=== PATIENT | male | born 1980 | race Caucasian/White ===

== ENCOUNTER 2018-12-28 01:30 | Emergency (ER) | payer OTHER ==
[~2018-12-28] VITALS: Ht 162.6 cm; Wt 93.0 kg
--- NOTE | 2018-12-28 01:38 | ED.ADGEN ---
Past History Past Medical History: GERD, Other Adult General Chief Complaint Chief Complaint ".. I am hurting really bad tonight.. it started about 1100 pm.. I had something like this before . maybe 5 - 6 yrs ago.....It was ins [facility]...they said I had gall stones...and offered to do surgery... ... but they said I could wait if.. I wanted too......." HPI HPI Patient is a 38 year old [facility]ALE [facility] who presents with above hx and complaints chest pain, vomiting, epigastric pain. Patient did have a high fat meal consisting of ribs approximately 1700 hrs. patient was awakened with severe epigastric and right upper quadrant pain. At 2300 hrs. . Patient has known history of gallstones from diagnosis 5-6 years ago. There is a family history of gallstones with father starting in age 50. No history of travel. No history of specific ill contacts. No history of bad food. No history of trauma. Patient currently rating his pain as 10 out of 10. No history of tarry stools. Does have history of GERD. ate same meal and did not get sick. Review of Systems Review of Systems Constitutional: Denies fever or chills [] Eyes: Denies change in visual acuity, redness, or eye pain [] HENT: Denies nasal congestion or sore throat [] Respiratory: Denies cough or shortness of breath [] Cardiovascular: No additional information not addressed in HPI [] GI: Complaints of severe epigastric abdominal pain, nausea, vomiting,. Denies bloody stools or diarrhea [] : Denies dysuria or hematuria [] Musculoskeletal: Denies back pain or joint pain [] Integument: Denies rash or skin lesions [] Neurologic: Denies headache, focal weakness or sensory changes [] Endocrine: Denies polyuria or polydipsia [] All other systems were reviewed and found to be within normal limits, except as documented in this note. Family History Family History Gall stone with Father - Age 50 cholecystectomy Current Medications Current Medications Current Medications Medications (Trade) Dose Ordered Sig/Khushboo Start Time Stop Time Status Last Admin Dose Admin Aspirin (Children'S Aspirin) 324 mg 1X ONCE 12/28/18 02:30 12/28/18 02:31 DC 12/28/18 02:05 324 MG Famotidine (Pepcid Vial) 20 mg 1X ONCE 12/28/18 01:45 12/28/18 02:03 DC 12/28/18 02:00 20 MG Info (Do NOT chart on this entry -- for MONITORING) 1 each PRN DAILY PRN 12/28/18 02:45 12/28/18 06:43 DC Iohexol (Omnipaque 240 Mg/ml) 30 ml 1X ONCE 12/28/18 03:00 12/28/18 03:01 DC 12/28/18 04:29 30 ML Iohexol (Omnipaque 300 Mg/ml) 75 ml 1X ONCE 12/28/18 03:00 12/28/18 03:01 DC 12/28/18 04:30 75 ML Ketorolac Tromethamine (Toradol 30mg Vial) 30 mg STK-MED ONCE 12/28/18 02:58 12/28/18 02:58 DC Lactated Ringer's 1,000 ml @ 1,000 mls/hr Q1H 12/28/18 02:30 12/28/18 03:29 DC 12/28/18 02:05 1,000 MLS/HR Magnesium Hydroxide (Milk Of Magnesia) 2,400 mg 1X ONCE 12/28/18 06:00 12/28/18 06:01 DC 12/28/18 05:44 2,400 MG Morphine Sulfate (Morphine 10mg Syringe) 10 mg 1X ONCE 12/28/18 03:30 12/28/18 03:31 DC Ondansetron HCl (Zofran) 8 mg 1X ONCE 12/28/18 01:45 12/28/18 02:03 DC 12/28/18 02:00 8 MG Allergies Allergies Allergies Coded Allergies Type Severity Reaction Last Updated Verified No Known Drug Allergies 12/28/18 No Physical Exam Physical Exam Constitutional: in acute distress, non-toxic appearance. [] HENT: Normocephalic, atraumatic, bilateral external ears normal, oropharynx moist, no oral exudates, nose normal. [] Eyes: PERRLA, EOMI, conjunctiva normal, no discharge. [] Neck: Normal range of motion, no tenderness, supple, no stridor. [] Cardiovascular . Has bradycardia:Heart rate regular rhythm, no murmur [] Lungs & Thorax: Bilateral breath sounds equal at apex auscultation [] Abdomen: Bowel sounds normal, soft, marked epigastric and right upper quadrant tenderness, no masses, no pulsatile masses. [] Rebound to right upper quadrant Skin: Warm, diaphoretic, no erythema, no rash. [] Back: No tenderness, mild right CVA tenderness. [] Extremities: No tenderness, no cyanosis, no clubbing, ROM intact, no edema. [No psoas sign. Does have bilateral knee scars Neurologic: Alert and oriented X 3, normal motor function, normal sensory function, no focal deficits noted. [] Psychologic: Affect anxious, judgement normal, mood normal. [] Current Patient Data Vital Signs Vital Signs Date Time Temp Pulse Resp B/P (MAP) Pulse Ox O2 Delivery O2 Flow Rate FiO2 12/28/18 06:35 58 22 122/63 (82) 98 Room Air 12/28/18 01:30 98.2 Lab Results Laboratory Tests Test 12/28/18 01:45 12/28/18 04:25 12/28/18 05:55 White Blood Count 8.6 x10^3/uL (4.0-11.0) Red Blood Count 4.76 x10^6/uL (4.30-5.70) Hemoglobin 14.1 g/dL (13.0-17.5) Hematocrit 41.5 % (39.0-53.0) Mean Corpuscular Volume 87 fL (79-100) Mean Corpuscular Hemoglobin 30 pg (25-35) Mean Corpuscular Hemoglobin Concent 34 g/dL (31-37) Red Cell Distribution Width 12.9 % (11.5-14.5) Platelet Count 213 x10^3/uL (140-400) Neutrophils (%) (Auto) 50 % (31-73) Lymphocytes (%) (Auto) 38 % (24-48) Monocytes (%) (Auto) 8 % (0-9) Eosinophils (%) (Auto) 3 % (0-3) Basophils (%) (Auto) 1 % (0-3) Neutrophils # (Auto) 4.3 x10^3uL (1.8-7.7) Lymphocytes # (Auto) 3.3 x10^3/uL (1.0-4.8) Monocytes # (Auto) 0.7 x10^3/uL (0.0-1.1) Eosinophils # (Auto) 0.2 x10^3/uL (0.0-0.7) Basophils # (Auto) 0.1 x10^3/uL (0.0-0.2) Prothrombin Time 9.9 SEC (9.4-11.4) Prothrombin Time INR 1.0 (0.9-1.1) Activated Partial Thromboplast Time 26 SEC (23-33) D-Dimer (Bryanna) 0.24 mg/L (0.00-0.50) Sodium Level 140 mmol/L (136-145) Potassium Level 3.5 mmol/L (3.5-5.1) Chloride Level 102 mmol/L (98-107) Carbon Dioxide Level 30 mmol/L (21-32) Anion Gap 8 (6-14) Blood Urea Nitrogen 15 mg/dL (8-26) Creatinine 1.2 mg/dL (0.7-1.3) Estimated GFR (Cockcroft-Gault) 67.4 Glucose Level 129 mg/dL (70-99) H Calcium Level 8.6 mg/dL (8.5-10.1) Magnesium Level 1.9 mg/dL (1.8-2.4) Total Bilirubin 0.2 mg/dL (0.2-1.0) Direct Bilirubin 0.1 mg/dL (0.0-0.2) Aspartate Amino Transferase (AST) 18 U/L (15-37) Alanine Aminotransferase (ALT) 28 U/L (16-63) Alkaline Phosphatase 62 U/L (46-116) Creatine Kinase 135 U/L (39-308) Troponin I Quantitative < 0.017 ng/mL (0-0.055) < 0.017 ng/mL (0-0.055) RE-Xvh-M-Type Natriuretic Peptide 28 pg/mL (0-124) Total Protein 7.7 g/dL (6.4-8.2) Albumin 3.9 g/dL (3.4-5.0) Amylase Level 46 U/L (25-115) Lipase 98 U/L (73-393) Urine Collection Type Unknown Urine Color Yellow Urine Clarity Clear Urine pH 5.5 Urine Specific [place] >=1.030 Urine Protein Neg (NEG-TRACE) Urine Glucose (UA) Neg mg/dL (NEG) Urine Ketones (Stick) Neg mg/dL (NEG) Urine Blood Neg (NEG) Urine Nitrite Neg (NEG) Urine Bilirubin Neg (NEG) Urine Urobilinogen Dipstick 0.2 mg/dL (0.2 mg/dL) Urine Leukocyte Esterase Neg (NEG) Urine RBC 0 /HPF (0-2) Urine WBC Occ /HPF (0-4) Urine Squamous Epithelial Cells None /LPF Urine Bacteria 0 /HPF (0-FEW) Urine Opiates Screen Pos (NEG) Urine Methadone Screen Neg (NEG) Urine Barbiturates Neg (NEG) Urine Phencyclidine Screen Neg (NEG) Urine Amphetamine/Methamphetamine Neg (NEG) Urine Benzodiazepines Screen Neg (NEG) Urine Cocaine Screen Neg (NEG) Urine Cannabinoids Screen Neg (NEG) Urine Ethyl Alcohol Neg (NEG) EKG EKG My interpretation EKG shows a sinus bradycardia at 58 bpm. Does have a left axis deviation and a fascicular block. Some components of anterior septal changes. But no findings of acute STEMI with contralateral changes[] Repeat EKG at 550 hours shows no acute interval change. Mild leftward axis. Rate 60 bpm. Repeat troponin was normal. 0.017. Radiology/Procedures Radiology/Procedures [][place] [address] IMAGING REPORT Signed PATIENT: KOTA MCKEON BACCOUNT: [id number] : 1980 LOCATION: ER AGE: 38 SEX: M EXAM STATUS: REG ER ORD. PHYSICIAN: LAY SOLIS MD REASON: Severe Rt. upper abd. pain, OMNI 300, 75ml & OMNI 240, 30ml PROCEDURE: CT ABD PELV W/ORAL&IV CONTRAST CT SCAN OF THE ABDOMEN AND PELVIS WITH IV CONTRAST. History: Right upper abdominal pain Comparison:None. Procedure: Contiguous axial images of the abdomen and pelvis were performed after the administration of 75 cc of Omni 300 IV contrast. Oral contrast: 30 mL of Omni 240 Findings: The appendix is normal. Liver: Unremarkable Spleen: Unremarkable Pancreas: Unremarkable Adrenal Glands: Unremarkable Kidneys: There is a 2 centers cyst in the lower pole the right kidney. There is no mass or lymphadenopathy. There is no free air. There is no free fluid. The urinary bladder appears normal. Impression: No acute findings. PQRS Compliance Statement: One or more of the following individualized dose reduction techniques were utilized for this examination: 1. Automated exposure control 2. Adjustment of the mA and/or kV according to patient size 3. Use of iterative reconstruction technique Electronically signed by: Gracy Bonilla III, MD (12/28/2018 4:59 AM) [facility] DICTATED AND SIGNED BY: GRACY BONILLA III, MD DATE: 12/28/18 0459 CC: LAY SOLIS MD; PCP,NO ~ Course & Med Decision Making Course & Med Decision Making Pertinent Labs and Imaging studies reviewed. (See chart for details).. @0600 hrs. Pt. reports almost complete resolution of his abdomen discomfort. Requesting discharge. Patient follow-up primary care. Patient follow-up with GI and consider EGD and colonoscopy. Patient to follow-up with surgery consider elective cholecystectomy. Will need outpatient biliary colic study. Patient to take high-dose Zantac 300 mg twice a day. Zofran 8 mg up to 4 times a day for nausea and vomiting. Patient stay on a clear fluid diet for next 48 hours. No solids or milk products. Patient resumed diet slowly and no high fat meals. Must follow- up. Return if any concerns. Avoid NSAIDs. [] Final Impression Final Impression 1. CP 2. N/V[] 3. Right upper gastric / abdomen pain 4. Gastritis 5. Biliary colic 6. Elevated Glucose 129 Dragon Disclaimer Dragon Disclaimer This electronic medical record was generated, in whole or in part, using a voice recognition dictation system. Dragon Disclaimer This chart was dictated in whole or in part using Voice Recognition software in a busy, high-work load, and often noisy Emergency Department environment. It may contain unintended and wholly unrecognized errors or omissions. Dragon Disclaimer This chart was dictated in whole or in part using Voice Recognition software in a busy, high-work load, and often noisy Emergency Department environment. It may contain unintended and wholly unrecognized errors or omissions. LAY SOLIS MD Dec 28, 2018 01:38
[2018-12-28] MEDS ORDERED: ONDANSETRON PF 4 MG/2 ML VIAL. IVP ONE (01:45)
[2018-12-28] MEDS ORDERED: FAMOTIDINE 20 MG/2 ML VIAL IVP ONE (01:45)
[2018-12-28] MEDS ORDERED: MORPHINE SULFATE 10 MG/ML SYRINGE. SQ ONE ×2 (02:00→03:30)
[2018-12-28 02:09] LABS: BASO # 0.1 x10^3/uL (0.0-0.2); BASO % 1 % (0-3); EOS # 0.2 x10^3/uL (0.0-0.7); EOS % 3 % (0-3); HEMATOCRIT 41.5 % (39.0-53.0); HEMOGLOBIN 14.1 g/dL (13.0-17.5); LYMPH # 3.3 x10^3/uL (1.0-4.8); LYMPH % 38 % (24-48); MEAN CORPUSCULAR HEMOGLOBIN 30 pg (25-35); MEAN CORPUSCULAR HGB CONC 34 g/dL (31-37); MEAN CORPUSCULAR VOLUME 87 fL (79-100); MONO # 0.7 x10^3/uL (0.0-1.1); MONO % 8 % (0-9); NEUT # 4.3 x10^3uL (1.8-7.7); NEUT % 50 % (31-73); PLATELET COUNT 213 x10^3/uL (140-400); RED BLOOD COUNT 4.76 x10^6/uL (4.30-5.70); RED CELL DISTRIBUTION WIDTH 12.9 % (11.5-14.5); WHITE BLOOD COUNT 8.6 x10^3/uL (4.0-11.0)
[2018-12-28] MEDS ORDERED: ASPIRIN 81 MG TAB.CHEW PO ONE (02:30)
[2018-12-28] MEDS ORDERED: IV RINGERS SOLUTION,LACTATED 1,000 ML IV SCH (02:30)
[2018-12-28 02:31] LABS: ALBUMIN 3.9 g/dL (3.4-5.0); CALCIUM 8.6 mg/dL (8.5-10.1); CREATININE 1.2 mg/dL (0.7-1.3); DIRECT BILIRUBIN 0.1 mg/dL (0.0-0.2); GFR 67.4; MAGNESIUM 1.9 mg/dL (1.8-2.4); POTASSIUM 3.5 mmol/L (3.5-5.1); TOTAL BILIRUBIN 0.2 mg/dL (0.2-1.0); TOTAL PROTEIN 7.7 g/dL (6.4-8.2)
[2018-12-28] MEDS ORDERED: CONTRAST GIVEN MC PRN (02:45)
[2018-12-28] MEDS ORDERED: KETOROLAC 30 MG/ML VIAL. ONE (02:58)
[2018-12-28] MEDS ORDERED: IOHEXOL 240 MG/ML 50ML VIAL. PO ONE (03:00)
[2018-12-28] MEDS ORDERED: KETOROLAC 30 MG/ML VIAL. IVP ONE (03:00)
[2018-12-28] MEDS ORDERED: IOHEXOL 300 MG/ML 75 ML VIAL. IV ONE (03:00)
--- NOTE | 2018-12-28 03:36 | EKG ---
[address] [address] Test Date: 2018-12-28 Test Time: 01:41:18 Pat Name: KOTA MCKEON Department: Room: Gender: M Robot Programmer: : 1980 Requested By: LAY SOLIS Order Number: [id number] Reading MD: Measurements Intervals [place] Rate: 58 P: 21 UT: 160 QRS: -31 QRSD: 90 T: -2 QT: 400 QTc: 396 Interpretive Statements SINUS RHYTHM ABNORMAL LEFT AXIS DEVIATION LEFT ANTERIOR FASCICULAR BLOCK QRS(T) CONTOUR ABNORMALITY CONSIDER ANTEROSEPTAL MYOCARDIAL DAMAGE ABNORMAL ECG RI6.01 No previous ECG available for comparison
[2018-12-28 04:49] LABS: BARBITURATES NEG (NEG); BENZODIAZEPINES NEG (NEG); CANNABINOIDS NEG (NEG); COCAINE NEG (NEG); METHADONE NEG (NEG); OPIATES POS (NEG); PHENCYCLIDINE NEG (NEG)
[2018-12-28 04:50] LABS: AMPHETAMINE/METHAMPHETAMINE NEG (NEG)
[2018-12-28 04:52] LABS: BILIRUBIN,URINE NEG (NEG); CLARITY,URINE CLEAR; COLOR,URINE YELLOW; GLUCOSE,URINE NEG (NEG); UROBILINOGEN,URINE 0.2 mg/dL (0.2 mg/dL)
[2018-12-28 04:53] LABS: BACTERIA,URINE 0 /HPF (0-FEW); NITRITE,URINE NEG (NEG); RBC,URINE 0 /HPF (0-2); WBC,URINE OCC /HPF (0-4)
--- NOTE | 2018-12-28 05:02 | RAD ---
CT SCAN OF THE ABDOMEN AND PELVIS WITH IV CONTRAST. History: Right upper abdominal pain Comparison:None. Procedure: Contiguous axial images of the abdomen and pelvis were performed after the administration of 75 cc of Omni 300 IV contrast. Oral contrast: 30 mL of Omni 240 Findings: The appendix is normal. Liver: Unremarkable Spleen: Unremarkable Pancreas: Unremarkable Adrenal Glands: Unremarkable Kidneys: There is a 2 centers cyst in the lower pole the right kidney. There is no mass or lymphadenopathy. There is no free air. There is no free fluid. The urinary bladder appears normal. Impression: No acute findings. PQRS Compliance Statement: One or more of the following individualized dose reduction techniques were utilized for this examination: 1. Automated exposure control 2. Adjustment of the mA and/or kV according to patient size 3. Use of iterative reconstruction technique Electronically signed by: Jaison Abreu III, MD (12/28/2018 4:59 AM) [facility]
[2018-12-28] MEDS ORDERED: RANI-376 PO (05:27)
[2018-12-28] MEDS ORDERED: OXYC1TAB15 PO (05:27)
[2018-12-28] MEDS ORDERED: ONDA8TAB9 PO (05:27)
--- NOTE | 2018-12-28 05:53 | EKG ---
[address] [address] Test Date: 2018-12-28 Test Time: 05:50:07 Pat Name: KOTA MCKEON Department: Room: Gender: M Clinical Laboratory Aide: : 1980 Requested By: LAY SOLIS Order Number: [id number] Reading MD: Measurements Intervals [place] Rate: 60 P: 0 WV: 170 QRS: -29 QRSD: 84 T: -8 QT: 400 QTc: 400 Interpretive Statements SINUS RHYTHM LEFTWARD AXIS OTHERWISE NORMAL ECG RI6.01 No previous ECG available for comparison
[2018-12-28] MEDS ORDERED: MAGNESIUM HYDROXIDE 2,400 MG/30 ML ORAL.SUSP. PO ONE (06:00)
--- NOTE | 2018-12-28 06:11 | RAD ---
Acute Abdominal Series: Technique: PA view of the chest and supine and upright views of the abdomen were obtained. History: Pain. Comparison: None. Findings: The lungs and pleural margins are clear. The bowel gas pattern appears normal. There is no free air. Impression: Radiographically normal acute abdominal series. Electronically signed by: Jaison Abreu III, MD (12/28/2018 6:08 AM) [facility]
[2018-12-28 06:35] VITALS: BP 122/63
== END 2018-12-28 06:40 | disposition home or self-care (01) ==
LOC: ER 01:30
DX: K29.70 Gastritis, unspecified, without bleeding (principal); R73.9 Hyperglycemia, unspecified; K80.50 Calculus of bile duct without cholangitis or cholecystitis without obstruction; R11.2 Nausea with vomiting, unspecified; K21.9 Gastro-esophageal reflux disease without esophagitis
CPT/HCPCS: 36415; 74022; 74177; 80048; 80076; 80307; 81001; 82150; 82550; 83690; 83735; 83880; 84443; 84484; 85025; 85379; 85610; 85730; 86705; 86709; 86803; 87340; 93005; 96361; 96372; 96374; 96375; 99285; J1885; J2270; J2405; J3490; J7120; Q9966; Q9967